=== PATIENT | female | born 1965 | race African-American/Black ===

== ENCOUNTER 2019-01-26 18:31 | Emergency (ER) | payer SELFPAY ==
[~2019-01-26] VITALS: Ht 157.5 cm; Wt 66.7 kg
[2019-01-26 20:28] VITALS: BP 138/68
== END 2019-01-26 20:29 | disposition home or self-care (01) ==
LOC: ED 18:31
DX: T78.40XA Allergy, unspecified, initial encounter (principal); E03.9 Hypothyroidism, unspecified; X58.XXXA Exposure to other specified factors, initial encounter